=== PATIENT | female | born 1955 | race Caucasian/White ===

== ENCOUNTER 2022-03-31 06:38 | Day surgery (SDC) | payer MEDICARE, OTHER ==
[~2022-03-31] VITALS: Ht 167.6 cm; Wt 71.8 kg
[~2022-03-31 06:38] MED LIST: SODIUM CHLORIDE 0.9% 1,000 ML IV ONE
[2022-03-31] MEDS ORDERED: SODIUM CHLORIDE 0.9% 1,000 ML ONE (07:24)
[2022-03-31 07:59] LABS: COVID AG,FIA SOURCE NASAL SWAB
[2022-03-31] MEDS ORDERED: FentaNYL CITRATE PF 100 MCG/2 ML VIAL ONE (08:33)
[2022-03-31] MEDS ORDERED: MIDAZOLAM HCL 2 MG/2 ML VIAL ONE (08:33)
[2022-03-31] MEDS ORDERED: MethylPREDNISolone SOD SUCC 125 MG/2 ML VIAL ONE ×2 (09:17→09:54)
[2022-03-31] MEDS ORDERED: MethylPREDNISolone SOD SUCC 125 MG/2 ML VIAL IVP ONE (09:30)
[2022-03-31] MEDS ORDERED: OXYGEN THERAPY IH SCH (20:00)
== END 2022-03-31 11:00 | disposition home or self-care (01) ==
LOC: SURGERY 06:38
PROVIDERS: ATTEND Internal Medicine Critical Care Medicine
DX: J38.4 Edema of larynx (principal); B37.0 Candidal stomatitis; I10 Essential (primary) hypertension; J43.9 Emphysema, unspecified; F41.9 Anxiety disorder, unspecified; F32.9 Major depressive disorder, single episode, unspecified; E78.00 Pure hypercholesterolemia, unspecified; F17.210 Nicotine dependence, cigarettes, uncomplicated; Z98.890 Other specified postprocedural states; Z79.899 Other long term (current) drug therapy; Z79.82 Long term (current) use of aspirin
CPT/HCPCS: 31623; 88112; 87101; 87220; 87070; 31624; 94640; 71045; 87015; 87426; 87206; J3010; J2250; J2930; J7030; C9803